=== PATIENT | female | born 1980 | race Caucasian/White ===

== ENCOUNTER 2016-07-26 17:22 | Emergency (ER) | payer OTHER ==
[2016-07-26 17:43] VITALS: BP 115/59; PULSE 75; TEMP 98.4; BMI 29.7
[2016-07-26 20:18] LABS: BASOPHIL 0.6 % (0-2.0); EOSINOPHIL 0.5 % (0-4.5); MCH 27.2 pg (25.7-33.7); MCHC 32.6 g/dl (32.0-36.0); MEAN CELL VOLUME 83.3 fl (80-96); MEAN PLT VOLUME 7.5 fl (7.5-11.1); NEUTROPHILS 79.4 % (42.8-82.8); PLATELET COUNT 248 K/MM3 (134-434); RDW 18.3 % (11.6-15.6); URINE APPEARANCE SLCLOUDY; URINE BILIRUBIN NEGATIVE (NEGATIVE); URINE COLOR LTYELLOW; URINE GLUCOSE (UA) NEGATIVE (NEGATIVE); URINE KETONE 1+ (NEGATIVE); URINE NITRITE NEGATIVE (NEGATIVE); URINE PROTEIN NEGATIVE (NEGATIVE); URINE UROBILINOGEN NEGATIVE E.U./dl (0.2-1.0)
[2016-07-26 20:27] LABS: URINE BLOOD 3+ (NEGATIVE); URINE LEUK ESTERASE 3+ (NEGATIVE)
[2016-07-26 20:28] LABS: URINE BACTERIA RARE /hpf (NONE SEEN); URINE MUCUS RARE; URINE RBC 33 /hpf (0-3); URINE WBC 41 /hpf (3-5)
--- NOTE | 2016-07-26 21:02 | PDOC ---
History of Present Illness - History of Present Illness Initial Comments: 07/26/16 22:24 The patient is a 36 year old female, 16 Weeks , with no significant past medical history, who presents to the emergency department with vaginal bleeding and back pain tonight. She denies chest pain, shortness of breath, headache and dizziness. She denies fever, chills, nausea, vomit, diarrhea and constipation. She denies dysuria, frequency, urgency and hematuria. <Aleida Jacobson - Last Filed: 07/26/16 22:24> - General History Source: Patient Exam Limitations: No Limitations <Jericho Shane - Last Filed: 07/26/16 22:56> - General Chief Complaint: Vaginal Bleeding Stated Complaint: VAGINAL BLEEDING/16 WKS Time Seen by Provider: 07/26/16 19:47 Past History <Aleida Jacobson - Last Filed: 07/26/16 22:24> - Past Medical History Other medical history: NONE - Reproductive History Is Patient Now?: Yes (#): 3 Para: 1 Spontaneous : 1 - Psycho/Social/Smoking Cessation Hx Suicidal Ideation: No Smoking History: Never smoked Hx Alcohol Use: No Drug/Substance Use Hx: No Substance Use Type: None <Jericho Shane - Last Filed: 07/26/16 22:56> - Past Medical History Allergies/Adverse Reactions: Allergies Allergy/AdvReac Type Severity Reaction Status Date / Time No Known Allergies Allergy Verified 07/26/16 17:43 Home Medications: Ambulatory Orders Cephalexin [Keflex] 500 mg PO BID #14 capsule 07/26/16 Vit/Iron Fumarate/FA [ Tablet] 1 each PO DAILY 07/26/16 Review of Systems - Review of Systems Able to Perform ROS?: Yes Comments:: 07/26/16 22:25 GENERAL/CONSTITUTIONAL: No fever or chills. No weakness. HEAD, EYES, EARS, NOSE AND THROAT: No change in vision. No ear pain or discharge. No sore throat. CARDIOVASCULAR: No chest pain or shortness of breath. RESPIRATORY: No cough, wheezing, or hemoptysis. GASTROINTESTINAL: No nausea, vomiting, diarrhea or constipation. GENITOURINARY: (+) Vaginal bleed, 16 weeks . No dysuria, frequency, or change in urination MUSCULOSKELETAL: No joint or muscle swelling or pain. No neck or back pain. SKIN: No rash NEUROLOGIC: No headache, vertigo, loss of consciousness, or change in strength/ sensation. ENDOCRINE: No increased thirst. No abnormal weight change. HEMATOLOGIC/LYMPHATIC: No anemia, easy bleeding, or history of blood clots. ALLERGIC/IMMUNOLOGIC: No hives or skin allergy. <Aleida Jacobson - Last Filed: 07/26/16 22:24> *Physical Exam - Vital Signs Last Vital Signs Temp Pulse Resp BP Pulse Ox 98.4 F 75 20 115/59 100 07/26/16 17:41 07/26/16 17:41 07/26/16 17:41 07/26/16 17:41 07/26/16 17:41 - Physical Exam Comments: 07/26/16 22:25 GENERAL: Awake, alert, and fully oriented, in no acute distress HEAD: No signs of trauma EYES: PERRLA, EOMI, sclera anicteric, conjunctiva clear ENT: Auricles normal inspection, hearing grossly normal, nares patent, oropharynx clear without exudates. Moist mucosa NECK: Normal ROM, supple, no lymphadenopathy, JVD, or masses LUNGS: Breath sounds equal, clear to auscultation bilaterally. No wheezes, and no crackles HEART: Regular rate and rhythm, normal S1 and S2, no murmurs, rubs or gallops ABDOMEN: Soft, nontender, normoactive bowel sounds. No guarding, no rebound. No masses EXTREMITIES: Normal range of motion, no edema. No clubbing or cyanosis. No cords, erythema, or tenderness NEUROLOGICAL: Cranial nerves II-XII intact. Normal speech, normal gait. Sensation intact in upper and lower extremities. 5/5 motor strength in upper and lower extremities. No pronator drift. Finger to nose intact. Rapid alternations intact. SKIN: Warm, Dry, normal turgor, no rashes or lesions noted. PELVIC: (+) Small clots in vaginal vault. No CMT, Cervical Os is closed. <Aleida Jacobson - Last Filed: 07/26/16 22:24> - Vital Signs Last Vital Signs Temp Pulse Resp BP Pulse Ox 98.4 F 75 20 115/59 100 07/26/16 17:41 07/26/16 17:41 07/26/16 17:41 07/26/16 17:41 07/26/16 17:41 <Jericho Shane - Last Filed: 07/26/16 22:56> ED Treatment Course - LABORATORY CBC & Chemistry Diagram: 07/26/16 20:13 - ADDITIONAL ORDERS Additional order review: Laboratory Results 07/26/16 07/26/16 20:13 20:13 Urine Color Ltyellow Urine Appearance Slcloudy Urine pH 6.0 Ur Specific Niles 1.014 Urine Protein Negative Urine Glucose (UA) Negative Urine Ketones 1+ H Urine Blood 3+ H Urine Nitrite Negative Urine Bilirubin Negative Urine Urobilinogen Negative Ur Leukocyte Esterase 3+ H Urine RBC 33 Urine WBC 41 Ur Epithelial Cells Many Urine Bacteria Rare Urine Mucus Rare Blood Type O POSITIVE Antibody Screen Negative 07/26/16 20:13 RBC 4.27 MCV 83.3 MCHC 32.6 RDW 18.3 H D MPV 7.5 Neutrophils % 79.4 Lymphocytes % 14.1 D Monocytes % 5.4 Eosinophils % 0.5 Basophils % 0.6 <Aleida Jacobson - Last Filed: 07/26/16 22:24> - LABORATORY CBC & Chemistry Diagram: 07/26/16 20:13 - ADDITIONAL ORDERS Additional order review: Laboratory Results 07/26/16 20:13 Urine Color Ltyellow Urine Appearance Slcloudy Urine pH 6.0 Ur Specific Niles 1.014 Urine Protein Negative Urine Glucose (UA) Negative Urine Ketones 1+ H Urine Blood 3+ H Urine Nitrite Negative Urine Bilirubin Negative Urine Urobilinogen Negative Ur Leukocyte Esterase 3+ H Urine RBC 33 Urine WBC 41 Ur Epithelial Cells Many Urine Bacteria Rare Urine Mucus Rare 07/26/16 20:13 RBC 4.27 MCV 83.3 MCHC 32.6 RDW 18.3 H D MPV 7.5 Neutrophils % 79.4 Lymphocytes % 14.1 D Monocytes % 5.4 Eosinophils % 0.5 Basophils % 0.6 - RADIOLOGY Radiology Studies Ordered: Category Date Time Status US(SINGLE) [US] Stat Ultrasound 07/26/16 19:50 Ordered <Jericho Shane - Last Filed: 07/26/16 22:56> Medical Decision Making - Medical Decision Making 07/26/16 20:57 A portion of this note was documented by scribe services under my direction. I have reviewed the details of the note, within reason, and agree with the documentation with the following case summary and management plan written by me. Patient treated in the ED. Nursing notes are reviewed and incorporated into the medical decision-making. Vital signs reviewed. Peripheral IV access obtained by the nurse, laboratory studies are drawn and sent, reviewed and interpreted by myself. Vital Signs Temp Pulse Resp BP Pulse Ox 98.4 F 75 20 115/59 100 07/26/16 17:41 07/26/16 17:41 07/26/16 17:41 07/26/16 17:41 07/26/16 17:41 36 yo F c/ no pmh LMP 9/7 ~16 wks p/w vaginal spotting today. The patient reports prior abdominal cramping. But denies pain now. Denies clots. Denies fevers, chills, nausea, vomiting. Will r/o miscarriage. 07/26/16 22:50 Single live intrauterine in breech presentation, FHR 152. CBC, BMP 07/26/16 20:13 Urine Test Results Urine Color Ltyellow 07/26/16 20:13 Urine Appearance Slcloudy 07/26/16 20:13 Urine pH 6.0 (5.0-8.0) 07/26/16 20:13 Ur Specific Niles 1.014 (1.001-1.035) 07/26/16 20:13 Urine Protein Negative (NEGATIVE) 07/26/16 20:13 Urine Glucose (UA) Negative (NEGATIVE) 07/26/16 20:13 Urine Ketones 1+ (NEGATIVE) H 07/26/16 20:13 Urine Blood 3+ (NEGATIVE) H 07/26/16 20:13 Urine Nitrite Negative (NEGATIVE) 07/26/16 20:13 Urine Bilirubin Negative (NEGATIVE) 07/26/16 20:13 Ur Leukocyte Esterase 3+ (NEGATIVE) H 07/26/16 20:13 Urine RBC 33 /hpf (0-3) 07/26/16 20:13 Urine WBC 41 /hpf (3-5) 07/26/16 20:13 Ur Epithelial Cells Many /hpf (FEW) 07/26/16 20:13 Urine Bacteria Rare /hpf (NONE SEEN) 07/26/16 20:13 Urine Mucus Rare 07/26/16 20:13 Rh positive. UA noted to have a UTI. keflex ordered. Pt states she will follow up wit her tile applicator tomorrow. Results given. Pt also aware of breech presentation. She will ob know. Return precautions given including worsening vaginal bleed. I discussed the physical exam findings, ancillary test results and final diagnoses with the patient. I answered all of the patient's questions. The patient was satisfied with the care received and felt comfortable with the discharge plan and treatment plan. The patient will call their primary care physician within 24 hours to arrange follow-up and will return to the Emergency Department with any new, persistant or worsening symptoms. <Jericho Shane - Last Filed: 07/26/16 22:56> *DC/Admit/Observation/Transfer - Attestations Scribe Attestion: 07/26/16 22:26 Documentation prepared by Aleida Jacobson, acting as medical referral coordinator for Jericho Shane MD, MD <Aleida Jacobson - Last Filed: 07/26/16 22:24> - Discharge Dispostion Admit: No <Jericho Shane - Last Filed: 07/26/16 22:56> Diagnosis at time of Disposition: Vaginal bleeding in Qualifiers: Trimester: second trimester Qualified Code(s): O46.92 - Antepartum hemorrhage, unspecified, second trimester UTI (urinary tract infection) Qualifiers: Urinary tract infection type: site unspecified Hematuria presence: without hematuria Qualified Code(s): N39.0 - Urinary tract infection, site not specified - Discharge Dispostion Disposition: HOME Condition at time of disposition: Stable - Prescriptions Prescriptions: Cephalexin [Keflex] 500 mg PO BID #14 capsule - Referrals Referrals: Arlin King MD [Primary Care Provider] - - Patient Instructions Printed Discharge Instructions: DI for Vaginal Bleeding During , DI for Urinary Tract Infection (UTI) Additional Instructions: Please go to your tile applicator doctor tomorrow or the following day. If you notice any worsening bleed, please return to the ER for further evaluation. You have an urine infection. Please take the keflex every 12 hours for the next week. This medication is safe for your .
[2016-07-26] MEDS ORDERED: CEPHALEXIN MONOHYDRATE 500 MG CAPSULE (UD) PO ONE (22:46)
[2016-07-26] MEDS ORDERED: CEPHALEXIN MONOHYDRATE 500 MG CAPSULE (UD) ONE (23:08)
== END 2016-07-26 23:13 | disposition home or self-care (01) ==
LOC: JER 17:22
DX: O46.92 Antepartum hemorrhage, unspecified, second trimester (principal); O23.32 Infections of other parts of urinary tract in pregnancy, second trimester; Z3A.16 16 weeks gestation of pregnancy
CPT/HCPCS: 36415; 76801-TC; 81003; 81015; 85025; 86850; 86900; 86901; 87086; 87186; 99283-25

== ENCOUNTER 2018-05-01 09:32 | Emergency (ER) | payer OTHER ==
[2018-05-01 09:45] VITALS: BMI 30.2
--- NOTE | 2018-05-01 11:10 | PDOC ---
History of Present Illness - General Chief Complaint: Vaginal Bleeding Stated Complaint: VAGINAL BLEEDING Time Seen by Provider: 05/01/18 09:58 History Source: Patient - History of Present Illness Timing/Duration: reports: constant Quality: reports: mild Past History - Past Medical History Allergies/Adverse Reactions: Allergies Allergy/AdvReac Type Severity Reaction Status Date / Time No Known Allergies Allergy Verified 05/01/18 09:45 Home Medications: Ambulatory Orders Vit/Iron Fum/Folic AC [ Tablet] 1 each PO DAILY 07/26/16 COPD: No - Reproductive History Is Patient Now?: Yes (#): 3 Para: 1 Spontaneous : 1 - Suicide/Smoking/Psychosocial Hx Smoking History: Never smoked Have you smoked in the past 12 months: No Information on smoking cessation initiated: No Hx Alcohol Use: No Drug/Substance Use Hx: No Substance Use Type: None Review of Systems - Review of Systems Constitutional: No: Fever ABD/GI: No: Nausea, Vomiting, Abdominal cramping : No: Dysuria, Flank Pain *Physical Exam - Vital Signs Last Vital Signs Temp Pulse Resp BP Pulse Ox 98.0 F 70 16 113/40 L 100 05/01/18 09:41 05/01/18 09:41 05/01/18 09:41 05/01/18 09:41 05/01/18 09:41 - Physical Exam General Appearance: Yes: Appropriately Dressed. No: Apparent Distress HEENT: positive: Normal Voice Neck: positive: Supple Respiratory/Chest: negative: Respiratory Distress Female Pelvic Exam: positive: normal external exam, cervical os closed, normal adnexa. negative: CMT, discharge, adnexal tenderness, vaginal bleeding Gastrointestinal/Abdominal: positive: Soft. negative: Tender Musculoskeletal: negative: CVA Tenderness Integumentary: positive: Dry, Warm Neurologic: positive: Fully Oriented, Alert, Normal Mood/Affect ED Treatment Course - RADIOLOGY Radiology Studies Ordered: Category Date Time Status TRANSVAGINAL US PREG [US] Stat Ultrasound 05/01/18 09:59 Ordered Medical Decision Making - Medical Decision Making 05/01/18 11:09 37 yo F, (s/p 1 spon ab), ~6 weeks by dates, scheduled for 1st in 2 weeks, here w/ vaginal spotting with 1 clot since yesterday. Bleeding has since improved. No abdominal pain, dysuria, nausea, vomiting, fever or chills See exam Threatened AB Stable w/ closed os and no blood in vault RH+ US w/ ~6 weeks IUP w/ cardiac activity Beta ~40K UA w/ trace le and 8 wbc, no nit, cx sent -Dc w/ OB f/u *DC/Admit/Observation/Transfer Diagnosis at time of Disposition: Threatened - Discharge Dispostion Disposition: HOME Condition at time of disposition: Good - Referrals - Patient Instructions Printed Discharge Instructions: Threatened Additional Instructions: Your ultrasound revealed an intrauterine at 6 weeks with heart activity and your beta was almost 40,000. Your blood type is O+ and your urine showed no signs of infection. Please follow-up with your OB this week - Post Discharge Activity
[2018-05-01 11:13] LABS: URINE APPEARANCE CLEAR; URINE BILIRUBIN NEGATIVE (<2.0 mg/dL); URINE COLOR LTYELLOW; URINE GLUCOSE (UA) NEGATIVE (NEGATIVE); URINE KETONE NEGATIVE (NEGATIVE); URINE LEUK ESTERASE TRACE (NEGATIVE); URINE NITRITE NEGATIVE (NEGATIVE); URINE PROTEIN NEGATIVE (NEGATIVE); URINE UROBILINOGEN NEGATIVE mg/dL (0.2-1.0)
[2018-05-01 11:35] LABS: EPI CELLS RARE /HPF (FEW); URINE BACTERIA RARE /hpf (NONE SEEN); URINE MUCUS RARE
[2018-05-01 13:42] VITALS: BP 123/78; PULSE 77; TEMP 98
== END 2018-05-01 13:30 | disposition home or self-care (01) ==
LOC: JER 09:32
DX: O26.891 Other specified pregnancy related conditions, first trimester (principal); Z3A.01 Less than 8 weeks gestation of pregnancy; O20.0 Threatened abortion
CPT/HCPCS: 36415; 76817-TC; 81003; 81015; 84702; 86850; 86900; 86901; 99283-25